=== PATIENT | female | born 1935 | race Caucasian/White ===

== ENCOUNTER → 2019-08-23 | Outpatient (CLI) | payer OTHER ==
[~2019-08-23] MED LIST: CALCIUM-MAGNES1 EAC5 PO; COREG6.25 MG PO; FISH OIL 1,001000 M2 PO; FLUOCINONI0.05 %/65 TOP; HYDRALAZINE 2525 MG PO; HYDROCODONE-AP1 EAC6 PO; INDOMETHACIN 2525 MG PO; LEVSIN0.125 MG PO; LISINOPRIL20 MG PO; NEURONTIN 300300 M1 PO; PAXIL10 MG PO; PRAVASTATIN SOD20 MG PO; PREDNISONE 10 M10 MG PO; PRILOSEC20 MG PO; PROAIR RESPICL90 MCG INH; SINEMET CR 50/21 TAB PO; VITAMIN D1000 UNI1 PO; ZETIA10 MG PO
== END ==
LOC: LAB 08:00
PROVIDERS: ATTEND Anesthesiology
DX: Z01.818 Encounter for other preprocedural examination (principal); Z11.59 Encounter for screening for other viral diseases